=== PATIENT | male | born 1950 | race Caucasian/White ===

== ENCOUNTER 2017-12-08 10:44 | Day surgery (SDC) | payer MEDICARE, MEDICAID ==
[~2017-12-08] VITALS: Ht 157.5 cm; Wt 73.5 kg
[2017-12-08] MEDS ORDERED: SODIUM CHLORIDE 0.9% 1,000 ML IV SCH (11:55)
[2017-12-08 12:24] LABS: BASOPHILS % 0.9 % (0.0-2.0); EOSINOPHILS % 0.5 % (0.0-5.0); HEMATOCRIT. 34.9 % (42.0-52.0); HEMOGLOBIN. 12.2 g/dL (14.0-18.0); LYMPHOCYTES % 26.8 % (20.0-50.0); MEAN CORPUSCULAR HEMOGLOBIN 31.1 pg (28.0-32.0); MEAN CORPUSCULAR VOLUME 88.9 fL (80.0-94.0); MEAN PLATELET VOLUME 7.7 fl (7.4-10.4); MONOCYTES % 9.6 % (2.0-8.0); NEUTROPHILS % 62.2 % (40.0-76.0); PLATELET 63 x1000/uL (130-400); RED BLOOD CELL COUNT 3.93 mill/uL (4.7-6.1); RED CELL DISTRIBUTION WIDTH 20.2 % (11.6-14.6)
[2017-12-08 12:27] LABS: CHLORIDE 108 mEq/L (98-107)
[2017-12-08 12:30] LABS: INR 1.3; PARTIAL THROMBOPLASTIN TIME 34.1 sec (23.4-31.0)
[2017-12-08] MEDS ORDERED: FENTANYL CITRATE/PF 50MCG/ML 2ML VIAL IV PRN (13:15)
[2017-12-08] MEDS ORDERED: GABA300C PO (13:17)
[2017-12-08] MEDS ORDERED: LOSA100T14 PO (13:17)
[2017-12-08] MEDS ORDERED: SITA1TAB2 PO (13:17)
[2017-12-08] MEDS ORDERED: IBUP-2028 PO (13:17)
[2017-12-08] MEDS ORDERED: GABA-531 PO (13:17)
[2017-12-08] MEDS ORDERED: PROP10TA10 PO (13:17)
[2017-12-08] MEDS ORDERED: OMEP20CA10 PO (13:17)
[2017-12-08] MEDS ORDERED: FURO20TA4 PO (13:17)
[2017-12-08] MEDS ORDERED: LEVO200T8 PO (13:17)
[2017-12-08] MEDS ORDERED: PROPOFOL 200MG/20ML VIAL IV ONE ×2 (14:55)
[2017-12-08] MEDS ORDERED: LIDOCAINE HCL/PF 1% 10 MG/ML 5ML VIAL ONE (14:55)
== END 2017-12-08 16:00 | disposition home or self-care (01) ==
LOC: OR 10:44
PROVIDERS: ATTEND Internal Medicine Gastroenterology
DX: I85.00 Esophageal varices without bleeding (principal); K70.30 Alcoholic cirrhosis of liver without ascites; K44.9 Diaphragmatic hernia without obstruction or gangrene; K76.6 Portal hypertension; K31.89 Other diseases of stomach and duodenum; K29.70 Gastritis, unspecified, without bleeding; E11.9 Type 2 diabetes mellitus without complications; I10 Essential (primary) hypertension; E03.9 Hypothyroidism, unspecified; K21.9 Gastro-esophageal reflux disease without esophagitis
CPT/HCPCS: 36415; 43235; 80048; 82962; 85025; 85610; 85730; J3490; J7030; J2704